=== PATIENT | female | born 2000 | race Two or more races ===

== ENCOUNTER 2024-05-27 07:47 | Emergency (ER) | payer OTHER ==
[~2024-05-27] VITALS: Ht 167.6 cm; Wt 72.6 kg
== END 2024-05-27 09:27 | disposition home or self-care (01) ==
LOC: ER 07:48
DX: S31.41XA Laceration without foreign body of vagina and vulva, initial encounter (principal); X58.XXXA Exposure to other specified factors, initial encounter; Y93.89 Activity, other specified; Y92.89 Other specified places as the place of occurrence of the external cause; Y99.8 Other external cause status